=== PATIENT | female | born 1960 | race Caucasian/White ===

== ENCOUNTER 2017-12-02 14:40 | Inpatient (IN) | payer BC ==
[~2017-12-02] VITALS: Ht 167.6 cm; Wt 101.2 kg
[~2017-12-02 14:40] MED LIST: AMIODARONE HCL200 MG PO; ASPIRIN EC81 MG PO; ATORVASTATIN CA10 MG PO; AUGMENTIN 875-1 EACH PO; AZITHROMYCIN250 MG PO; LEVAQUIN750 MG PO; LOSARTAN-HCTZ1 EAC1 PO; METOPROLOL SUCC25 MG PO; MINOCYCLINE HCL50 MG PO; PROMETHAZINE-COD5 ML PO; TOPROL XL25 MG PO; TYLENOL # 31 EA PO
[2017-12-02] MEDS ORDERED: ASPIRIN 81 MG CHEW TAB PO ONE (14:45)
--- NOTE | 2017-12-02 15:32 | Diagnostic Imaging Report ---
EXAMINATION: CHEST SINGLE (PORTABLE) INDICATION: Shortness of breath status post shock COMPARISON: 08/09/2016 FINDINGS: TUBES and LINES: AICD is intact. LUNGS: Lungs are well inflated. Lungs are clear. There is no evidence of pneumonia or pulmonary edema. PLEURA: No pleural effusion or pneumothorax. HEART AND MEDIASTINUM: The cardiomediastinal silhouette is unremarkable. BONES AND SOFT TISSUES: No acute osseous lesion. Soft tissues are unremarkable. UPPER ABDOMEN: No free air under the diaphragm. IMPRESSION: No acute thoracic abnormality. Signed by: Dr. Dani Marques M.D. on 12/02/2017 3:28 PM
[2017-12-02 15:34] LABS: BASOPHILS # (AUTO) 0.1 (0.0-0.1); BASOPHILS % 0.8 % (0.0-1.0); EOSINOPHILS # (AUTO) 0.3 (0.0-0.4); EOSINOPHILS % 2.9 % (0.0-6.0); HEMATOCRIT 41.5 % (34.2-44.1); HEMOGLOBIN 13.9 g/dL (12.0-16.0); LYMPHOCYTES % 43.7 % (18.0-39.1); MEAN CORPUSCULAR HEMOGLOBIN 29.8 pg (28-32); MEAN CORPUSCULAR HGB CONC 33.5 g/dL (31-35); MEAN CORPUSCULAR VOLUME 88.9 fL (81-99); MONOCYTES # (AUTO) 0.8 (0.2-0.8); MONOCYTES % 8.4 % (4.4-11.3); NEUTROPHILS # (AUTO) 4.1 (2.1-6.9); PLATELET COUNT 322 x10e3/uL (140-360); RED BLOOD COUNT 4.67 x10e6/uL (3.6-5.1); RED CELL DISTRIBUTION WIDTH 13.5 % (11.7-14.4)
[2017-12-02 15:38] LABS: INR 1.02; PARTIAL THROMBOPLASTIN TIME 32.4 seconds (23.8-35.5); PROTHROMBIN TIME 12.6 seconds (11.9-14.5)
[2017-12-02 15:48] LABS: ALANINE AMINOTRANSFERASE 59 IU/L (0-55); ALBUMIN 4.1 g/dL (3.5-5.0); ALBUMIN/GLOBULIN RATIO 1.1 (0.8-2.0); ALKALINE PHOSPHATASE 109 IU/L (40-150); ANION GAP 15.3 mmol/L (8-16); BLOOD UREA NITROGEN 9 mg/dL (7-26); BUN/CREATININE RATIO 9 (6-25); CALCIUM 9.7 mg/dL (8.4-10.2); CARBON DIOXIDE 23 mmol/L (22-29); CHLORIDE 106 mmol/L (98-107); CREATINE KINASE 105 IU/L (29-168); CREATININE, SERUM 1.01 mg/dL (0.57-1.11); EST GLOMERULAR FILTRATION RATE 56 ML/MIN (60-); GLUCOSE 94 mg/dL (74-118); POTASSIUM 3.3 mmol/L (3.5-5.1); SODIUM 141 mmol/L (136-145)
[2017-12-02] MEDS ORDERED: POTASSIUM CHLORIDE 20 MEQ TAB CR PO STA (16:16)
[2017-12-02] MEDS ORDERED: ONDANSETRON HCL INJ 2 MG/ML VIAL IV PRN (16:30)
[2017-12-02] MEDS: POTASSIUM CHLORIDE 20 MEQ TAB CR PO SCH ×2 (16:47→16:51)
[2017-12-02] MEDS: FAMOTIDINE 20 MG TAB PO SCH (16:47)
[2017-12-02 17:33] VITALS: BP 191/78
[2017-12-02 17:46] VITALS: BP 191/78
[2017-12-02 17:53] VITALS: BP 191/78
[2017-12-02] MEDS: ASPIRIN 81 MG ENTERIC COATED PO SCH (18:15)
[2017-12-02] MEDS: AMIODARONE HCL 200 MG TAB PO SCH ×2 (18:15→20:20)
[2017-12-02] MEDS: METOPROLOL SUCCINATE 25 MG TAB XL PO SCH (18:15)
[2017-12-02] MEDS ORDERED: ACETAMINOPHEN/CODEINE 300MG - 30MG TAB PO PRN (18:30)
[2017-12-02 19:45] VITALS: BP 139/78
[2017-12-02 20:00] VITALS: BP 139/78
--- NOTE | 2017-12-02 21:35 | Consultation ---
DATE OF CONSULTATION: December 02, 2017 CARDIOLOGY CONSULTATION REQUESTING PHYSICIAN: Dr. Vo REASON FOR CONSULTATION: Ventricular tachycardia. HISTORY OF PRESENT ILLNESS: This is a 57-year-old woman with history of ventricular tachycardia, status post AICD, hypertension, hyperlipidemia, and hypothyroidism, who presented after her AICD fired. The patient reports she has been started on Contrave 3 weeks ago. However, after she started taking the medicine, she would feel her heart fluttering in her chest. She, therefore, only took 6 pills in the period of time with the last dose several days prior. Today, she states she had been feeling well, folding clothes this morning, when she felt her AICD fired. She, therefore, presented to the ER for further evaluation. She denied any chest pain, shortness of breath, edema, orthopnea or PND on device interrogation. She was found to have 2 episodes of ventricular fibrillation today. The 1st one was treated with ATP and the 2nd was treated with ATP with a 41-joule defibrillation. No arrhythmias were, otherwise, documented on the device. REVIEW OF SYSTEMS: Negative except as per HPI. PAST MEDICAL HISTORY 1. Ventricular tachycardia, status post AICD. 2. Hypertension. 3. Hyperlipidemia. 4. Diabetes mellitus. 5. Hypothyroidism. ALLERGIES: PLEASE SEE EMR. MEDICATIONS: Please see medication list. SOCIAL HISTORY: No tobacco or alcohol. FAMILY HISTORY: Noncontributory. PHYSICAL EXAM VITAL SIGNS: Temperature 97 degrees, pulse 67, respiratory rate 18, blood pressure 191/78, oxygen saturation 98% on room air. GENERAL: Well-developed, well-nourished woman. No acute distress. HEENT: Normocephalic, atraumatic. Pupils equal. No scleral icterus. NECK: Supple. No thyromegaly, no cervical lymphadenopathy, no carotid bruits. LUNGS: Clear to auscultation bilaterally. No wheezes or crackles. CARDIOVASCULAR: Normal rate, regular rhythm. No murmur. Normal S1, S2. ABDOMEN: Soft, nontender. EXTREMITIES: No edema. NEURO: Nonfocal exam. LABS: WBC 9.2, hemoglobin 13.9, hematocrit 41.5, platelets 322,000. Sodium 141, potassium 3.3, chloride 106, CO2 23, BUN 9, creatinine 1.01. INR 1.02. Chest x-ray, no acute thoracic abnormality. EKG, normal sinus rhythm, left anterior fascicular block. IMPRESSIONS 1. Ventricular tachycardia. 2. Hypokalemia. 3. Hypertension, uncontrolled. 4. Hyperlipidemia. 5. Diabetes mellitus. RECOMMENDATIONS: Replete electrolytes with goal potassium of 4. Review of patient's recent medications does not suggest either Contrave or predispose patient to ventricular tachycardia. We will start patient on amiodarone. Monitor on telemetry. Continue home cardiac medications. Thank you for this consult. We will continue to follow. Job#: [id number] CQ
[2017-12-03] VITALS: BP 134/72
[2017-12-03 00:17] LABS: BILIRUBIN,URINE NEGATIVE (NEGATIVE); CLARITY,URINE CLEAR (CLEAR); COLOR,URINE YELLOW (YELLOW); KETONES,URINE NEGATIVE (NEGATIVE); LEUKOCYTE ESTERASE ,URINE NEGATIVE (NEGATIVE); NITRITE,URINE NEGATIVE (NEGATIVE); PROTEIN,URINE DIPSTICK NEGATIVE (NEGATIVE); URINE UROBILINOGEN 0.2 mg/dL (0.2 - 1)
[2017-12-03 00:20] LABS: BACTERIA,URINE RARE /HPF; EPITHELIAL CELLS,URINE FEW /LPF; RBC,URINE 0-5 /HPF (0-5); WBC,URINE (MAN) 0-5 /HPF (0-5)
[2017-12-03 00:38] LABS: CREATINE KINASE MB 0.8 ng/mL (0-5.0)
[2017-12-03 04:10] VITALS: BP 121/71
[2017-12-03] MEDS: FAMOTIDINE 20 MG TAB PO SCH ×2 (05:20→15:40)
[2017-12-03 05:56] LABS: BASOPHILS # (AUTO) 0.1 (0.0-0.1); BASOPHILS % 0.9 % (0.0-1.0); EOSINOPHILS # (AUTO) 0.3 (0.0-0.4); EOSINOPHILS % 3.3 % (0.0-6.0); HEMATOCRIT 37.4 % (34.2-44.1); HEMOGLOBIN 12.6 g/dL (12.0-16.0); LYMPHOCYTES # (AUTO) 3.9 (1.0-3.2); LYMPHOCYTES % 48.8 % (18.0-39.1); MEAN CORPUSCULAR HEMOGLOBIN 30.1 pg (28-32); MEAN CORPUSCULAR HGB CONC 33.7 g/dL (31-35); MEAN CORPUSCULAR VOLUME 89.3 fL (81-99); MONOCYTES # (AUTO) 0.6 (0.2-0.8); MONOCYTES % 7.6 % (4.4-11.3); NEUTROPHILS # (AUTO) 3.1 (2.1-6.9); NEUTROPHILS % 39.1 % (38.7-80.0); PLATELET COUNT 271 x10e3/uL (140-360); RED BLOOD COUNT 4.19 x10e6/uL (3.6-5.1); RED CELL DISTRIBUTION WIDTH 13.8 % (11.7-14.4)
[2017-12-03 06:16] LABS: ANION GAP 11.9 mmol/L (8-16); BLOOD UREA NITROGEN 8 mg/dL (7-26); BUN/CREATININE RATIO 9 (6-25); CALCIUM 9.3 mg/dL (8.4-10.2); CARBON DIOXIDE 25 mmol/L (22-29); CHLORIDE 110 mmol/L (98-107); CHOL/HDL RATIO 3.2 (3.0-3.6); CHOLESTEROL 150 MD/DL (0-199); CREATININE, SERUM 0.88 mg/dL (0.57-1.11); EST GLOMERULAR FILTRATION RATE > 60 ML/MIN (60-); GLUCOSE 97 mg/dL (74-118); HDL CHOLESTEROL 47 MG/DL (40-60); LDL CHOLESTEROL 76 MG/DL (60-130); POTASSIUM 3.9 mmol/L (3.5-5.1); SODIUM 143 mmol/L (136-145); TRIGLYCERIDES 136 MG/DL (0-149)
[2017-12-03 06:44] LABS: CREATINE KINASE MB 0.7 ng/mL (0-5.0)
[2017-12-03 07:13] LABS: MAGNESIUM 2.1 MG/DL (1.3-2.1)
[2017-12-03 07:47] LABS: FREE THYROXINE INDEX 1.612 (1.4-3.8); THYROID STIMULATING HORMONE 4.5 uIU/mL (0.350-4.940)
[2017-12-03 08:45] VITALS: BP 133/72
[2017-12-03] MEDS: ASPIRIN 81 MG ENTERIC COATED PO SCH (08:54)
[2017-12-03] MEDS: AMIODARONE HCL 200 MG TAB PO SCH ×2 (08:54→14:50)
[2017-12-03] MEDS: METOPROLOL SUCCINATE 25 MG TAB XL PO SCH (08:55)
[2017-12-03] MEDS: POTASSIUM CHLORIDE 20 MEQ TAB CR PO SCH (08:55)
[2017-12-03] MEDS ORDERED: ASPIRIN 81 MG ENTERIC COATED PO SCH (09:00)
--- NOTE | 2017-12-03 09:10 | History and Physical ---
A 57-year-old female comes in with ventricular tachycardia, status post firing of the defibrillator. HISTORY OF PRESENTING ILLNESS: A 57-year-old female with a history of AICD, hypertension, hyperlipidemia, hypothyroidism, and history of diabetes, was in usual state of health. She had a get-together for her 's Father's Day and after that she was folding clothes. She had felt palpitations all through the day and then she stopped working and patient suddenly started to have ventricular tachycardia and palpitations and then the defibrillator fired and patient came into the emergency room after that. PAST MEDICAL HISTORY: History of ventricular tachycardia, history of hypertension, hyperlipidemia, type 2 diabetes mellitus, and hypothyroidism. MEDICATIONS: See medication list. FAMILY HISTORY: Noncontributory. SURGICAL HISTORY: Noncontributory. SOCIAL HISTORY: No tobacco, no alcohol abuse either, but patient has been taking some Contrave about 3 weeks ago, did not take much of it because it made her funny in her chest. REVIEW OF SYSTEMS: Negative for chest pain. No shortness of breath. No nausea, vomiting, or diarrhea. No constipation. No rectal pain, hematochezia, or hematemesis PHYSICAL EXAMINATION GENERAL: Patient is alert and oriented times 3. VITAL SIGNS: Her blood pressure is elevated at 191/78 on arrival. HEENT: Normocephalic and atraumatic. Pupils react to light and accommodation. CV: S1 and S2 normal. Regular rhythm. ABDOMEN: Nontender, nondistended. EXTREMITIES: No clubbing. No cyanosis. No edema. LABORATORY VALUES: Platelets were 322,000, hematocrit 41, and hemoglobin 13.9. Potassium is 3.3, CO2 of 23, BUN of 9, and creatinine 1.01. EKG normal sinus rhythm, left anterior fascicular block. IMPRESSIONS 1. Ventricular tachycardia, status post firing of the defibrillator. 2. Hypokalemia. 3. Hypertension. 4. Hyperlipidemia. 5. Diabetes mellitus. PLAN: We will go ahead and continue monitoring her electrolytes. Potassium has been replaced. We will go and check her phosphorus and also her magnesium levels. We will check hemoglobin A1c and her thyroid level too. The patient is started on amiodarone 200 mg twice a day by cardiology. We will continue that right now. We will also check her electrolytes tomorrow. Further recommendations per clinical course. We will keep the patient inpatient. Job#: [id number] CF
[2017-12-03 12:10] VITALS: BP_SYST 108; BP_SYST 140; BP_DIAS 71; BP_DIAS 89
--- NOTE | 2017-12-03 15:12 | Progress Note ---
DATE: December 03, 2017 CARDIOLOGY PROGRESS NOTE SUBJECTIVE: The patient denies chest pain or shortness of breath. She had not any arrhythmias. OBJECTIVE VITALS: Temperature 96.1 degrees, pulse 78, respiratory rate 20, blood pressure 108/71, oxygen saturation 94% on room air. GENERAL: Awake, alert and in no acute distress. LUNGS: Clear to auscultation bilaterally. No wheezes or crackles. CARDIOVASCULAR: Normal rate. Regular rhythm. No murmur. Normal S1 and S2. ABDOMEN: Soft and nontender. EXTREMITIES: No edema. NEURO: Nonfocal exam. CARDIAC MEDICATIONS 1. Metoprolol succinate 25 mg p.o. daily. 2. Potassium chloride 40 mEq p.o. b.i.d. 3. Amiodarone 400 mg p.o. t.i.d. 4. Aspirin 81 mg p.o. daily. LABS: WBC 7.99, hemoglobin 12.6, hematocrit 37.4, and platelets 271,000. Sodium 143, potassium 3.9, chloride 110, CO2 25, BUN 8, creatinine 0.88. Troponin 0.01. Cholesterol 150, triglycerides 136, LDL 76, HDL 47. Telemetry is A-paced. IMPRESSION 1. Ventricular tachycardia. 2. Hypokalemia. 3. Hypertension, controlled. 4. Hyperlipidemia. 5. Diabetes mellitus. RECOMMENDATIONS: Replete electrolytes with goal potassium above 4 and magnesium above 2. Start p.o. amiodarone load. The patient had coronary evaluation performed June of last year without evidence of obstructive coronary artery disease. We will have the patient follow up in the office for outpatient nuclear stress test. The patient had cardiac catheterization in January of 2016 with no angiographic coronary artery disease. Will have the patient follow up in the office for outpatient nuclear stress test. The patient had MRI performed in February 2016 with full-thickness viable appearing myocardium in the entire left ventricle. There was no abnormal enhancement of the myocardium after contrast administration. There was no evidence of hypertrophic cardiomyopathy or left ventricular compaction. There was no evidence to suggest right ventricular cardiomyopathy either. Can further discuss possible referral to EP for EP study as an outpatient if she has further episodes of ventricular tachycardia. Monitor on telemetry while the patient is admitted. Continue current cardiac medications. Please have the patient follow up with us in the office in 1 week. Thank you for this consult. We will continue to follow. Job#: [id number] RI
[2017-12-03 16:16] VITALS: BP 122/75
[2017-12-04] MEDS ORDERED: POTASSIUM CHLORIDE 20 MEQ TAB CR PO SCH (09:00)
== END 2017-12-03 18:40 | disposition home or self-care (01) | DRG 310 ==
LOC: ER 14:40 → ERHOLD 16:31 → MED/SURG2 17:22 → OBSVTOIN 12-03 15:22
PROVIDERS: ADMIT Family Medicine; ATTEND Family Medicine
DX: I47.1 Supraventricular tachycardia (principal); E87.6 Hypokalemia; I10 Essential (primary) hypertension; E78.5 Hyperlipidemia, unspecified; E11.8 Type 2 diabetes mellitus with unspecified complications; E03.9 Hypothyroidism, unspecified; Z79.4 Long term (current) use of insulin
CPT/HCPCS: 36415; 71045; 80048; 80053; 80061; 81001; 82550; 82553; 82948; 83735; 84100; 84436; 84443; 84479; 84484; 85025; 85610; 85730; 87086; 93005; 99284; G0378

== ENCOUNTER 2018-01-14 00:17 | Emergency (ER) | payer BC ==
[~2018-01-14] VITALS: Ht 167.6 cm; Wt 101.2 kg
[2018-01-14 00:45] LABS: BASOPHILS # (AUTO) 0.1 (0.0-0.1); BASOPHILS % 0.7 % (0.0-1.0); EOSINOPHILS # (AUTO) 0.5 (0.0-0.4); EOSINOPHILS % 4.4 % (0.0-6.0); HEMATOCRIT 40.6 % (34.2-44.1); HEMOGLOBIN 13.3 g/dL (12.0-16.0); LYMPHOCYTES % 44.1 % (18.0-39.1); MEAN CORPUSCULAR HEMOGLOBIN 29.8 pg (28-32); MEAN CORPUSCULAR HGB CONC 32.8 g/dL (31-35); MEAN CORPUSCULAR VOLUME 90.8 fL (81-99); MONOCYTES # (AUTO) 0.7 (0.2-0.8); MONOCYTES % 6.6 % (4.4-11.3); NEUTROPHILS # (AUTO) 4.9 (2.1-6.9); NEUTROPHILS % 43.9 % (38.7-80.0); PLATELET COUNT 357 x10e3/uL (140-360); RED BLOOD COUNT 4.47 x10e6/uL (3.6-5.1); RED CELL DISTRIBUTION WIDTH 14.2 % (11.7-14.4)
[2018-01-14 00:52] LABS: BILIRUBIN,URINE NEGATIVE (NEGATIVE); CLARITY,URINE CLEAR (CLEAR); COLOR,URINE YELLOW (YELLOW); KETONES,URINE NEGATIVE (NEGATIVE); LEUKOCYTE ESTERASE ,URINE NEGATIVE (NEGATIVE); NITRITE,URINE NEGATIVE (NEGATIVE); PROTEIN,URINE DIPSTICK NEGATIVE (NEGATIVE); URINE UROBILINOGEN 0.2 mg/dL (0.2 - 1)
[2018-01-14 00:55] LABS: EPITHELIAL CELLS,URINE FEW /LPF; RBC,URINE 0-5 /HPF (0-5); WBC,URINE (MAN) 0-5 /HPF (0-5)
[2018-01-14 01:01] LABS: ALBUMIN 3.9 g/dL (3.5-5.0); ALBUMIN/GLOBULIN RATIO 0.9 (0.8-2.0); ANION GAP 16.4 mmol/L (8-16); CALCIUM 9.7 mg/dL (8.4-10.2); CREATININE, SERUM 1.17 mg/dL (0.57-1.11); POTASSIUM 3.4 mmol/L (3.5-5.1)
[2018-01-14 01:10] LABS: CREATINE KINASE MB 1.3 ng/mL (0-5.0)
--- NOTE | 2018-01-14 02:08 | Diagnostic Imaging Report ---
EXAM: CHEST SINGLE (PORTABLE), AP 1 view INDICATION: Cardiac ablation last week COMPARISON: December 02, 2017 FINDINGS: LINES/TUBES: None LUNGS: No consolidations or edema. PLEURA: No effusions or pneumothorax. HEART AND MEDIASTINUM: Normal size and contour. BONES AND SOFT TISSUES: No acute findings. IMPRESSION: No acute thoracic abnormality. Signed by: Dr. Lissett Sandoval M.D. on 01/14/2018 2:05 AM
--- NOTE | 2018-01-14 02:14 | Diagnostic Imaging Report ---
Exam: Ultrasound of the aorta January 14, 2018 Indication: Right groin pain Comparison: None Findings: Grayscale, color Doppler and spectral waveform analysis of the aorta was performed. The proximal aorta was not visualized. The mid aorta measured 1.6 cm in AP diameter and the distal aorta measured 1.2 cm in AP diameter. No aortic aneurysm. The iliac bifurcation could not be seen due to bowel gas. Impression: No evidence of an abdominal aortic aneurysm in the mid or distal portions. The proximal aorta and bifurcation could not be visualized secondary to bowel gas. Signed by: Dr. Lissett Sandoval M.D. on 01/14/2018 2:10 AM
[2018-01-14 02:25] VITALS: BP 119/60
== END 2018-01-14 02:42 | disposition home or self-care (01) ==
LOC: ER 00:17
DX: G89.18 Other acute postprocedural pain (principal); R07.89 Other chest pain; I10 Essential (primary) hypertension; E78.5 Hyperlipidemia, unspecified; Z95.810 Presence of automatic (implantable) cardiac defibrillator
CPT/HCPCS: 36415; 71045; 76770; 80053; 81001; 82550; 82553; 84484; 85025; 93005; 93926; 99284

== ENCOUNTER 2018-10-18 00:54 | Emergency (ER) | payer BC ==
[~2018-10-18] VITALS: Ht 167.6 cm; Wt 88.5 kg
--- OUTSIDE RECORDS SUMMARY | 2018-10-18 00:58 | XMS REPORT | Clinical Summary ---
Author Author MILAGRO [facility] Address Unknown Phone Unavailable Care Team Providers Care Log Marker Name Role Phone Rod Dick MD PCP Allergies Comments Active Allergy Reactions Severity Noted Date Succinylcholine Anaphylaxis High 04/13/2016 Medications End Date Status Medication Sig Dispensed Refills Start Date Active atorvastatin (LIPITOR) 20 Take 40 mg by 0 MG tablet mouth daily . Active valsartan (DIOVAN) 80 MG Take 80 mg by 0 tablet mouth daily. Active ezetimibe (ZETIA) 10 mg Take 10 mg by 0 tablet mouth daily. Active potassium chloride Take 10 mEq 0 (KLOR-CON) 10 MEQ CR by mouth tablet daily. Active cholecalciferol, vitamin Take 50,000 0 D3, 50,000 unit Tab Units by mouth once a week. 01/04/2018 Discontinued amiodarone (PACERONE) 200 Take 400 mg 0 MG tablet by mouth daily. Active Problems Problem Noted Date Ventricular tachycardia 04/14/2016 Encounters Care Team Description Date Type Specialty Miguel Angel [place] AA 01/04/2018 Anesthesia Event Mason Jackson MD EPS & ABLATION 01/04/2018 Surgery Mason Jackson MD 01/04/2018 Hospital Cardiology Encounter after 10/17/2017 Social History Date Tobacco Use Types Packs/Day Years Used Never Smoker Smokeless Tobacco: Never Used Alcohol Use Drinks/Week oz/Week Comments No Sex Assigned at Date Recorded Not on file Industry Job Start Date Occupation Not on file Not on file Not on file Travel End Travel History Travel Start No recent travel history available. Last Filed Vital Signs Time Taken Vital Sign Reading 01/04/2018 9:15 PM CDT Blood Pressure 132/68 01/04/2018 9:15 PM CDT Pulse 64 01/04/2018 6:45 PM CDT Temperature 36.8 C (98.3 F) 01/04/2018 9:15 PM CDT Respiratory Rate 18 01/04/2018 6:45 PM CDT Oxygen Saturation 97% - Inhaled Oxygen - Concentration 01/04/2018 6:06 AM CDT Weight 102.2 kg (225 lb 3.2 oz) 01/04/2018 6:06 AM CDT Height 167.6 cm (5' 6") 01/04/2018 6:06 AM CDT Body Mass Index 36.35 Plan of Treatment Not on file Implants Device Identifier Shelf Expiration Date Model / Serial / Lot Implanted Type Area Manufactur er [id number] 08/15/2018 [id number] / / [id number] Device Clsr Angio-Seal Vip 8fr Cardiovasc N/A: Groin [employer] [id number] - [id number] ular MED:CARDIA Implanted: Qty: 1 on 01/04/2018 by Mason Irving MD Procedures Comments Procedure Name Priority Date/Time Associated Diagnosis RHYTHM STRIP - SCAN 10/03/2018 6:20 AM CDT RHYTHM STRIP - SCAN 10/03/2018 6:20 AM CDT CARDIAC CATH REPORT - 01/09/2018 SCAN 11:32 AM CDT CARDIAC CATH REPORT - 01/09/2018 SCAN 11:32 AM CDT ARRYTHMIA IMPLANT REPORT 01/08/2018 - SCAN 11:00 AM CDT POCT-ACT Routine 01/04/2018 4:05 PM CDT POCT-ACT Routine 01/04/2018 3:28 PM CDT POCT-ACT Routine 01/04/2018 2:32 PM CDT POCT-ACT Routine 01/04/2018 11:55 AM CDT POCT-ACT Routine 01/04/2018 11:41 AM CDT POCT-ACT Routine 01/04/2018 10:54 AM CDT EPS & ABLATION 01/04/2018 VT (ventricular 7:30 AM CDT tachycardia) (HCC) Case Notes (1) POP6 PVI and VT ABLATION WITH CARTO, (MAC ANESTHESIA ) FIRST CASE REQUEST Special Needs PVI/VT ABLATION/W ITH CARTO, MAC ANESTHESIA FIRST CASE REQUEST COMPREHENSIVE METABOLIC Routine 01/04/2018 PANEL 7:02 AM CDT HEPATIC FUNCTION PANEL Routine 01/04/2018 7:02 AM CDT APTT Routine 01/04/2018 6:32 AM CDT PROTHROMBIN TIME/INR Routine 01/04/2018 6:32 AM CDT CBC (HEMOGRAM ONLY) Routine 01/04/2018 6:32 AM CDT after 10/17/2017 Results * RHYTHM STRIP - SCAN (10/03/2018 6:20 AM CDT) Only the most recent of 2 results within the time period is included. Narrative Performed At * CARDIAC CATH REPORT - SCAN (01/09/2018 11:32 AM CDT) Narrative Performed At * CARDIAC CATH REPORT - SCAN (01/09/2018 11:32 AM CDT) Narrative Performed At * ARRYTHMIA IMPLANT REPORT - SCAN (01/08/2018 11:00 AM CDT) Narrative Performed At * POC ACTIVATED CLOTTING TIME (01/04/2018 4:05 PM CDT) Only the most recent of 6 results within the time period is included. Activated Clotting Time 125Comment: TESTED AT [facility] [address] [place] [id number] [facility] Specimen Blood Performing Organization Address City/State/Zipcode Phone Number [address] [address] [facility] * Hepatic function panel (01/04/2018 7:02 AM CDT) Protein, Total 7.7 6.0 - 8.3 gm/dL [facility] [place] Albumin 4.3 3.5 - 5.0 g/dL [facility] [place] Total Bilirubin 0.3 0.2 - 1.2 mg/dL [facility] [place] [place] Bilirubin, Direct 0.2 0.1 - 0.5 mg/dL [facility] [place] Alkaline Phosphatase 128 40 - 150 U/L [facility] [place] [place] AST 30 5 - 34 U/L [facility] [place] ALT 45 6 - 55 U/L [facility] [place] [place] Specimen Blood Performing Organization Address City/State/Zipcode Phone Number [facility] [address] [place] [address] [facility] * Comprehensive metabolic panel (01/04/2018 7:02 AM CDT) Protein, Total 7.7 6.0 - 8.3 gm/dL [facility] [place] Albumin 4.3 3.5 - 5.0 g/dL [facility] [place] Alkaline Phosphatase 128 40 - 150 U/L [facility] [place] Total Bilirubin 0.3 0.2 - 1.2 mg/dL [facility] [place] Sodium 140 136 - 145 meq/L [facility] [place] Potassium 4.3 3.5 - 5.1 meq/L [facility] [place] Chloride 106 98 - 107 meq/L [facility] [place] CO2 23 22 - 29 meq/L [facility] [place] [place] BUN 18 7 - 21 mg/dL [facility] [place] Creatinine 1.19 0.57 - 1.25 mg/dL [facility] [place] Glucose 117 (H) 70 - 105 mg/dL [facility] [place] Calcium 9.9 8.4 - 10.2 mg/dL [facility] [place] AST 30 5 - 34 U/L [facility] [place] ALT 45 6 - 55 U/L [facility] [place] EGFR 47Comment: ESTIMATED GFR IS mL/min/1.73 sq m [facility] NOT ACCURATE CREATININE [facility] CLEARANCE IN PREDICTING GLOMERULAR FILTRATION RATE. ESTIMATED GFR IS NOT APPLICABLE FOR DIALYSIS PATIENTS. Specimen Blood Performing Organization Address City/[facility]/[employer] [place] [address] [phone] [place] [address] * aPTT (01/04/2018 6:32 AM CDT) PTT 27.3 22.5 - 36.[address] [facility] [place] Specimen Blood Narrative Performed At Within 24 hours, if on Coumadin [facility] [place] Performing Organization Address [facility]/[employer] [place] [address] [phone] [place] [address] * Prothrombin time/INR (01/04/2018 6:32 AM CDT) Protime 12.7 11.7 - 14.[address] [facility] [place] INR 1.0 <=5.[address] [facility] [place] Specimen Blood Narrative Performed At RECOMMENDED COUMADIN/WARFARIN INR THERAPY RANGES [facility] STANDARD DOSE: 2.0 - 3.0 Includes: PROPHYLAXIS for venous thrombosis, [facility] systemic embolization; TREATMENT for venous thrombosis and/or pulmonary embolus. HIGH RISK: Target INR is 2.5-3.5 for patients with mechanical heart valves. Within 24 hours, if on Coumadin Performing Organization Address City/[facility]/[employer] Phone Number [address] [address] [phone] [place] [address] * CBC (Hemogram only) (01/04/2018 6:32 AM CDT) WBC 8.7 3.5 - 10.5 K/L [facility] [place] RBC 4.34 3.93 - 5.22 M/L [facility] [place] Hemoglobin 13.0 11.2 - 15.7 GM/DL [facility] [place] Hematocrit 40.0 34.1 - 44.9 % [facility] [place] MCV 92.2 79.4 - 94.[address] [facility] [place] MCH 30.0 25.6 - 32.[address] [facility] [place] MCHC 32.5 32.2 - 35.5 GM/DL [facility] [place] RDW 14.5 (H) 11.7 - 14.4 % [facility] [place] Platelets 281 150 - 450 K/CU MM [facility] [place] MPV 9.4 9.4 - 12.[address] [facility] [place] nRBC 0 0 - 0 /[address] [facility] [place] Specimen Blood Performing Organization Address City/State/Zipcode Phone Number [facility] [address] [place], [place] [id number] [facility] after 10/17/2017 Insurance Payer Benefit Subscriber ID Type Phone Address Plan / Group BLUE CROSS/BLUE SHIELD BCBS ADV xxxxxxxxxxxx [phone] [address] [place] [address] EXCHANGE Advance Directives For more information, please contact: [facility] [address] [place], [place] [id number] Date Inactivated Comments Code Status Date Activated 01/05/2018 12:57 AM Full Code 01/04/2018 6:13 AM This code status was determined by: Patient 04/14/2016 6:59 PM Full Code 04/14/2016 6:32 AM This code status was determined by: Patient
--- NOTE | 2018-10-18 01:24 | NUR ---
[employer] contacted to have pt pacemaker/defib interrogated. Spoke with Maya burch will have a rep contact us with ETA. Dr. Jin notified. [phone] [facility] Product Model/Serial# Implant DT [employer] ICD [id number] Aug 08 [employer] Lead [id number] Aug 08 [employer] Lead [id number] Aug 08
[2018-10-18 01:40] LABS: BASOPHILS # (AUTO) 0.1 (0.0-0.1); BASOPHILS % 0.7 % (0.0-1.0); EOSINOPHILS # (AUTO) 0.5 (0.0-0.4); EOSINOPHILS % 4.8 % (0.0-6.0); HEMATOCRIT 41.1 % (34.2-44.1); HEMOGLOBIN 13.9 g/dL (12.0-16.0); LYMPHOCYTES # (AUTO) 4.8 (1.0-3.2); LYMPHOCYTES % 42.8 % (18.0-39.1); MEAN CORPUSCULAR HEMOGLOBIN 30.4 pg (28-32); MEAN CORPUSCULAR HGB CONC 33.8 g/dL (31-35); MEAN CORPUSCULAR VOLUME 89.9 fL (81-99); MONOCYTES # (AUTO) 0.8 (0.2-0.8); MONOCYTES % 7.1 % (4.4-11.3); NEUTROPHILS % 44.2 % (38.7-80.0); PLATELET COUNT 323 x10e3/uL (140-360); RED BLOOD COUNT 4.57 x10e6/uL (3.6-5.1); RED CELL DISTRIBUTION WIDTH 13.2 % (11.7-14.4)
--- NOTE | 2018-10-18 01:45 | NUR ---
RADIOLOGY AT BEDSIDE FOR CHEST XRAY.
[2018-10-18 01:51] LABS: ALANINE AMINOTRANSFERASE 43 IU/L (0-55); ALBUMIN/GLOBULIN RATIO 1.1 (0.8-2.0); ALKALINE PHOSPHATASE 152 IU/L (40-150); ANION GAP 13.4 mmol/L (8-16); BLOOD UREA NITROGEN 10 mg/dL (7-26); BUN/CREATININE RATIO 11 (6-25); CALCIUM 10.5 mg/dL (8.4-10.2); CARBON DIOXIDE 28 mmol/L (22-29); CHLORIDE 101 mmol/L (98-107); CREATINE KINASE 72 IU/L (29-168); CREATININE, SERUM 0.92 mg/dL (0.57-1.11); EST GLOMERULAR FILTRATION RATE > 60 ML/MIN (60-); GLUCOSE 98 mg/dL (74-118); POTASSIUM 3.4 mmol/L (3.5-5.1); SODIUM 139 mmol/L (136-145)
--- NOTE | 2018-10-18 02:16 | NUR ---
Spoke with Hever from [employer]. Per Hever, no Atrial and Ventricular Arrythmias noted during Interrogation. Dr. Jin notified. Normal Interrogation per rep.
--- NOTE | 2018-10-18 02:40 | Diagnostic Imaging Report ---
EXAMINATION: CHEST SINGLE (PORTABLE) INDICATION: ^ORDER PLACED BY ^[id number] ^[id number] ^Y COMPARISON: 01/14/2018 FINDINGS: AP view TUBES and LINES: Stable left chest wall dual-lead cardiac device. LUNGS: Lungs are well inflated. Lungs are clear. There is no evidence of pneumonia or pulmonary edema. PLEURA: No pleural effusion or pneumothorax. HEART AND MEDIASTINUM: The cardiomediastinal silhouette is unremarkable. BONES AND SOFT TISSUES: No acute osseous lesion. Soft tissues are unremarkable. UPPER ABDOMEN: No free air under the diaphragm. IMPRESSION: No acute thoracic abnormality. Signed by: Dr. Sony Padgett MD on 10/18/2018 2:36 AM
[2018-10-18 03:15] VITALS: BP 125/70
== END 2018-10-18 03:17 | disposition home or self-care (01) ==
LOC: ER 00:54
DX: R07.89 Other chest pain (principal); Z95.0 Presence of cardiac pacemaker
CPT/HCPCS: 36415; 71045; 80053; 82550; 82553; 84484; 85025; 93005; 99284

== ENCOUNTER → 2022-08-18 | Day surgery (SDC) | payer BC ==
[2022-08-15 11:42] LABS: BASOPHILS # (AUTO) 0.1 (0.0-0.1); BASOPHILS % 0.9 % (0.0-1.0); EOSINOPHILS # (AUTO) 0.1 (0.0-0.4); EOSINOPHILS % 1.4 % (0.0-6.0); HEMOGLOBIN 13.3 g/dL (12.0-16.0); LYMPHOCYTES # (AUTO) 2.7 (1.0-3.2); MEAN CORPUSCULAR HEMOGLOBIN 30.4 pg (28-32); MEAN CORPUSCULAR HGB CONC 31.7 g/dL (31-35); MEAN CORPUSCULAR VOLUME 96.1 fL (81-99); MONOCYTES # (AUTO) 0.6 (0.2-0.8); MONOCYTES % 8.7 % (4.4-11.3); NEUTROPHILS # (AUTO) 3.5 (2.1-6.9); NEUTROPHILS % 49.9 % (38.7-80.0); PLATELET COUNT 265 x10e3/uL (140-360); RED BLOOD COUNT 4.37 x10e6/uL (3.6-5.1); RED CELL DISTRIBUTION WIDTH 13.4 % (11.7-14.4)
[2022-08-15 11:54] LABS: ANION GAP 14.4 mmol/L (8-16); CALCIUM 9.2 mg/dL (8.4-10.2); CREATININE, SERUM 0.74 mg/dL (0.57-1.11); POTASSIUM 3.4 mmol/L (3.5-5.1)
[~2022-08-18] MED LIST changes: +BIOTIN; +BUPIVACAINE HCL 0.5% INJ 30 ML VIAL INJ ONE; +FAMOTIDINE 20 MG/2 ML VIAL IV ONE; +FENTANYL CITRATE/PF 100MCG/2 ML INJ ONE; +FOLIC ACID0.4 MG PO; +LEVOTHYROXINE50 MCG PO; +LIDOCAINE HCL 1% LOCAL INJ 20 ML VIAL ONE; +LIDOCAINE HCL 2% LOCAL INJ 5 ML SDV VIAL INJ ONE; +LIPITOR10 MG PO; +METHYLPREDNISOLONE ACETATE 80 MG/ML VIAL ONE; +MIDAZOLAM HCL 2 MG/2 ML VIAL ONE; +ONDANSETRON HCL INJ 2MG/ML 2ML 2 MG/ML VIAL ONE; +OZEMPIC0.25 MG/0. SC; +POVIDONE IODINE 0.05% 0.05 % ML PO ONE; +PROPOFOL IV EMULSION 10 MG/ML 20 ML VIAL ONE; +SODIUM CHLORIDE 0.9% 100 ML ONE; +VITAMIN B12 PO; +VITAMIN D PO; +ZETIA10 MG PO
[2022-08-18 07:30] VITALS: BP 134/76
== END | disposition home or self-care (01) ==
LOC: OR 05:35
PROVIDERS: ATTEND Orthopaedic Surgery
DX: M16.12 Unilateral primary osteoarthritis, left hip (principal); M06.9 Rheumatoid arthritis, unspecified; I47.20 Ventricular tachycardia, unspecified; E78.5 Hyperlipidemia, unspecified; E03.9 Hypothyroidism, unspecified; E11.9 Type 2 diabetes mellitus without complications; K58.9 Irritable bowel syndrome, unspecified; Z88.8 Allergy status to other drugs, medicaments and biological substances; Z01.810 Encounter for preprocedural cardiovascular examination; Z01.812 Encounter for preprocedural laboratory examination; Z79.85 Long-term (current) use of injectable non-insulin antidiabetic drugs; Z79.899 Other long term (current) drug therapy; Z95.810 Presence of automatic (implantable) cardiac defibrillator
CPT/HCPCS: 20610; 36415 ×2; 77002; 80048; 82948; 85025; 93005; J1040; J2001 ×2; J2250; J2405; J2704; J3010; J7050